=== PATIENT | female | born 1940 | race Caucasian/White ===

== ENCOUNTER 2019-09-11 12:22 | Emergency (ER) | payer MEDICARE, OTHER ==
--- NOTE | 2019-09-11 12:50 | EDM.PDOC ---
ED HPI GENERAL MEDICAL PROBLEM - General Stated Complaint: POSSIBLE UTI Time Seen by Provider: 09/11/19 12:35 Source of Information: Reports: Patient History Limitations: Reports: No Limitations - History of Present Illness INITIAL COMMENTS - FREE TEXT/NARRATIVE: c/o weakness, chills, urinary frequency, dysuria pt states she had nocturia x 5 two noghts ago, last night she voided 2-3x which is more normal has had dysuria has had chronic weakness, no falls, altho has had chills in past 24h, no temp now did not eat bfast or lunch today, unable to void, dec'd appetitie has taken her regular meds lives alone, retired nurse, has home health aide, has a dtr in [place] says she has a crooked back, no prior back surgery, has seen Dr Oneill from [facility] out of [place] and is supposed to have a myelogram done there, pt thinks she needs back surgery pt states it takes a very long time to get dressed, does not have her usual agility 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, states that the redness in her LLE is chronic altho it seems more red and warm than VSD alone pt awoke 7:30a, out of bed at 8:30a in good spirits and joking despite not eating in 4h since getting up RECENT MEDS [facility] CV: asa 81/d, losartan 25/d BEH: citalopram 20/d ENDOC: levothy 25/d LABS IN [facility]: none IMAGING IN [facility]: none PMH INCLUDES: CV: pacer ORTHO: DJD knees requiring injections, back pain PSH INCLUDES: gastric bypass, hernia repair, "tummy tuck", pacer PREVIOUS VISITS [facility]: none PCP Tamiko Grayson from [facility] Back Pain Score (Numeric/FACES): 7 - Related Data Allergies Allergy/AdvReac Type Severity Reaction Status Date / Time atropine [From Lomotil] Allergy Itching Verified 09/11/19 12:33 diphenoxylate [From Lomotil] Allergy Itching Verified 09/11/19 12:33 glycerin [From Nasal-Ease] Allergy Rash Verified 09/11/19 12:33 meperidine [From Demerol] Allergy Itching Verified 09/11/19 12:33 methylcellulose Allergy Rash Verified 09/11/19 12:33 [From Nasal-Ease] Penicillins Allergy Other Verified 09/11/19 12:33 sodium chloride Allergy Rash Verified 09/11/19 12:33 [From Nasal-Ease] zinc [From Nasal-Ease] Allergy Rash Verified 09/11/19 12:33 Home Meds: Home Meds Aspirin [Halfprin] 81 mg PO DAILY 09/11/19 [History] Citalopram [Citalopram HBr] 40 mg PO DAILY 09/11/19 [History] Levothyroxine 137 mcg PO DAILY 09/11/19 [History] Losartan [Cozaar] 50 mg PO DAILY 09/11/19 [History] buPROPion [Wellbutrin] 75 mg PO BEDTIME 09/11/19 [History] traMADol HCl [Tramadol HCl] 50 mg PO Q8HR PRN 09/11/19 [History] ED ROS GENERAL - Review of Systems Review Of Systems: See Below Constitutional: Reports: Malaise, Weakness, Decreased Appetite HEENT: Reports: No Symptoms Respiratory: Reports: No Symptoms. Denies: Shortness of Breath Cardiovascular: Reports: No Symptoms. Denies: Chest Pain Endocrine: Reports: No Symptoms GI/Abdominal: Reports: No Symptoms : Reports: Frequency, Urgency Musculoskeletal: Reports: Back Pain Skin: Reports: No Symptoms Neurological: Reports: Difficulty Walking Psychiatric: Reports: No Symptoms Hematologic/Lymphatic: Reports: No Symptoms Immunologic: Reports: No Symptoms ED EXAM, GENERAL - Physical Exam Exam: See Below Exam Limited By: No Limitations General Appearance: Alert, WD/WN, No Apparent Distress, Other (very pleasant, tends to minimize sxs) Ears: Hearing Grossly Normal Nose: Normal Inspection, Normal Mucosa, No Blood Throat/Mouth: Normal Inspection, Normal Lips, Normal Voice, No Airway Compromise Head: Atraumatic, Normocephalic Neck: Normal Inspection, Supple, Non-Tender, Full Range of Motion. No: Lymphadenopathy (R), Lymphadenopathy (L) Respiratory/Chest: No Respiratory Distress, Lungs Clear, Normal Breath Sounds, No Accessory Muscle Use, Chest Non-Tender Cardiovascular: Regular Rate, Rhythm, No Edema, Other (2/6 EZRA at LSB, precordium quiet) GI/Abdominal: Normal Bowel Sounds, Soft, Non-Tender, No Distention Extremities: Other (no edema, hyperpigmentation b/l c/w VSD, inc'd red and warm LLE from ankle to knee with small serous fluid oozing from a small break in skin anteriorly ) Neurological: Alert, Oriented, CN II-XII Intact, Normal Cognition, No Motor/Sensory Deficits Psychiatric: Normal Affect, Normal Mood Skin Exam: Warm, Other (see above, marked dec'd turgor UE with 1 sec tenting) Lymphatic: No Adenopathy Course - Vital Signs Last Recorded V/S: Last Vital Signs Temp 36.7 C 09/11/19 12:42 Pulse 70 09/11/19 12:42 Resp 16 09/11/19 12:42 BP 139/59 L 09/11/19 12:42 Pulse Ox 100 09/11/19 12:42 - Orders/Labs/Meds Orders: Active Orders 24 hr Category Date Time Status EKG Documentation Completion [RC] ASDIRECTED Care 09/11/19 14:09 Active Chest 2V [CR] Stat Exams 09/11/19 14:09 Taken CULTURE BLOOD [BC] Stat Lab 09/11/19 13:15 Received CULTURE BLOOD [BC] Stat Lab 09/11/19 14:55 Received CULTURE ROUTINE + SMEAR [RM] Stat Lab 09/11/19 14:25 Results CULTURE URINE [RM] Stat Lab 09/11/19 14:20 Received EKG 12 Lead [EK] Routine Ther 09/11/19 14:09 Ordered Labs: Laboratory Tests 09/11/19 09/11/19 09/11/19 Range/Units 13:15 13:15 13:15 WBC 11.7 (4.5-12.0) X10-3/uL RBC 4.02 (3.23-5.20) x10(6)uL Hgb 12.6 (11.5-15.5) g/dL Hct 39.1 (30.0-51.3) % MCV 97.3 H (80-96) fL MCH 31.3 (27.7-33.6) pg MCHC 32.1 L (32.2-35.4) g/dL RDW 12.5 (11.5-15.5) % Plt Count 187 (125-369) X10(3)uL MPV 7.5 (7.4-10.4) fL Add Manual Diff Yes Neutrophils % (Manual) 91 H (46-82) % Lymphocytes % (Manual) 5 L (13-37) % Monocytes % (Manual) 4 (4-12) % Sodium 131 L (135-145) mmol/L Potassium 4.2 (3.5-5.3) mmol/L Chloride 96 L (100-110) mmol/L Carbon Dioxide 31 (21-32) mmol/L BUN 15 (7-18) mg/dL Creatinine 0.8 (0.55-1.02) mg/dL Est Cr Clr Drug Dosing 41.13 mL/min Estimated GFR (MDRD) > 60 (>60) BUN/Creatinine Ratio 18.8 (9-20) Glucose 86 (80-116) mg/dL Lactic Acid 0.6 (0.4-2.0) mmol/L Calcium 9.8 (8.6-10.2) mg/dL Total Bilirubin 0.6 (0.1-1.3) mg/dL AST 30 H (5-25) IU/L ALT 20 (12-36) U/L Alkaline Phosphatase 75 (56-112) IU/L Troponin I (4.0-60.3) pg/mL C-Reactive Protein (0.5-0.9) mg/dL Total Protein 6.8 (6.0-8.0) g/dL Albumin 3.4 (3.2-4.6) g/dL Globulin 3.4 g/dL Albumin/Globulin Ratio 1.0 TSH, Ultra Sensitive (0.36-3.74) IU/mL Urine Color (YELLOW) Urine Appearance (CLEAR) Urine pH (5.0-6.5) Ur Specific [place] (1.010-1.025) Urine Protein (NEGATIVE) mg/dL Urine Glucose (UA) (NORMAL) mg/dL Urine Ketones (NEGATIVE) mg/dL Urine Occult Blood (NEGATIVE) Urine Nitrite (NEGATIVE) Urine Bilirubin (NEGATIVE) Urine Urobilinogen (NEGATIVE) mg/dL Ur Leukocyte Esterase (NEGATIVE) Urine RBC (0-5) Urine WBC (0-5) Ur Squamous Epith Cells (NS,R,O) Urine Bacteria (NS) 09/11/19 09/11/19 09/11/19 Range/Units 13:15 13:15 14:20 WBC (4.5-12.0) X10-3/uL RBC (3.23-5.20) x10(6)uL Hgb (11.5-15.5) g/dL Hct (30.0-51.3) % MCV (80-96) fL MCH (27.7-33.6) pg MCHC (32.2-35.4) g/dL RDW (11.5-15.5) % Plt Count (125-369) X10(3)uL MPV (7.4-10.4) fL Add Manual Diff Neutrophils % (Manual) (46-82) % Lymphocytes % (Manual) (13-37) % Monocytes % (Manual) (4-12) % Sodium (135-145) mmol/L Potassium (3.5-5.3) mmol/L Chloride (100-110) mmol/L Carbon Dioxide (21-32) mmol/L BUN (7-18) mg/dL Creatinine (0.55-1.02) mg/dL Est Cr Clr Drug Dosing mL/min Estimated GFR (MDRD) (>60) BUN/Creatinine Ratio (9-20) Glucose (80-116) mg/dL Lactic Acid (0.4-2.0) mmol/L Calcium (8.6-10.2) mg/dL Total Bilirubin (0.1-1.3) mg/dL AST (5-25) IU/L ALT (12-36) U/L Alkaline Phosphatase (56-112) IU/L Troponin I 12.9 (4.0-60.3) pg/mL C-Reactive Protein 17.9 H* (0.5-0.9) mg/dL Total Protein (6.0-8.0) g/dL Albumin (3.2-4.6) g/dL Globulin g/dL Albumin/Globulin Ratio TSH, Ultra Sensitive 1.99 (0.36-3.74) IU/mL Urine Color Yellow (YELLOW) Urine Appearance Clear (CLEAR) Urine pH 6.0 (5.0-6.5) Ur Specific [place] 1.015 (1.010-1.025) Urine Protein Negative (NEGATIVE) mg/dL Urine Glucose (UA) Normal (NORMAL) mg/dL Urine Ketones 15 H (NEGATIVE) mg/dL Urine Occult Blood Negative (NEGATIVE) Urine Nitrite Negative (NEGATIVE) Urine Bilirubin Negative (NEGATIVE) Urine Urobilinogen Normal (NEGATIVE) mg/dL Ur Leukocyte Esterase Small H (NEGATIVE) Urine RBC 0-5 (0-5) Urine WBC 0-5 (0-5) Ur Squamous Epith Cells Few H (NS,R,O) Urine Bacteria Moderate H (NS) Meds: Medications Discontinued Medications Generic Name Dose Route Start Last Admin Trade Name Trang PRN Reason Stop Dose Admin Ceftriaxone Sodium 1 gm 09/11/19 14:15 09/11/19 14:47 Rocephin IVPUSH 09/11/19 14:16 1 gm ONETIME ONE Administration Sodium Chloride 1,000 mls @ 999 mls/hr 09/11/19 12:59 09/11/19 13:13 Normal Saline IV 09/11/19 13:59 999 mls/hr .BOLUS ONE Administration Vancomycin HCl 850 mg/ Sodium 250 mls @ 166.667 mls/hr 09/11/19 14:16 09/11/19 15:23 Chloride IV 09/11/19 14:17 166.667 mls/hr ONETIME ONE Administration - Re-Assessments/Exams Free Text/Narrative Re-Assessment/Exam: 09/11/19 15:03 pt with redness up her LLE to near the groin, marked with pen has 4-5 left inguinal LNs medially that are 0.5 cm and soft and tender culture swab obtained of the left pretib area altho moisture was minimal, does have woody edema on compression 3 mm without leaving an imprint no h/o MRSA 09/11/19 15:42 the hosp here is at capacity and on diversion pt is from [place], d/w Dr Gregor tobias who accepted pt in transfer pt requests to go by private vehicle, ceftriaxone 1 gm given, will see if vanco can be interrupted Departure - Departure Time of Disposition: 15:57 Disposition: DC/Tfer to Acute Hospital 02 Condition: Good Clinical Impression: Cellulitis of left lower extremity, Inguinal adenopathy, Moderate dehydration, Leukocytosis, Left shift, Elevated C-reactive protein (CRP), Weakness, Chills (without fever) - Discharge Information *PRESCRIPTION DRUG MONITORING PROGRAM REVIEWED*: Not Applicable *COPY OF PRESCRIPTION DRUG MONITORING REPORT IN PATIENT ANGIE: Not Applicable Referrals: Tamiko Grayson PA [Primary Care Provider] - Sepsis Event Note (ED) - Evaluation Sepsis Screening Result: No Definite Risk - Focused Exam Vital Signs: Vital Signs Temp Pulse Resp BP Pulse Ox 09/11/19 12:42 36.7 C 70 16 139/59 L 100 - My Orders Last 24 Hours: My Active Orders 09/11/19 13:15 CULTURE BLOOD [BC] Stat 09/11/19 14:09 EKG Documentation Completion [RC] ASDIRECTED Chest 2V [CR] Stat EKG 12 Lead [EK] Routine 09/11/19 14:20 CULTURE URINE [RM] Stat 09/11/19 14:25 CULTURE ROUTINE + SMEAR [RM] Stat 09/11/19 14:55 CULTURE BLOOD [BC] Stat - Assessment/Plan Last 24 Hours: My Active Orders 09/11/19 13:15 CULTURE BLOOD [BC] Stat 09/11/19 14:09 EKG Documentation Completion [RC] ASDIRECTED Chest 2V [CR] Stat EKG 12 Lead [EK] Routine 09/11/19 14:20 CULTURE URINE [RM] Stat 09/11/19 14:25 CULTURE ROUTINE + SMEAR [RM] Stat 09/11/19 14:55 CULTURE BLOOD [BC] Stat
[2019-09-11] MEDS ORDERED: Sodium Chloride 0.9% 1,000 ML IV ONE (12:59)
[2019-09-11] MEDS ORDERED: cefTRIAXone 1 GM Vial IVPUSH ONE (14:15)
== END 2019-09-11 17:30 ==
LOC: FB.ED 12:22
DX: E86.0 Dehydration (principal); D72.829 Elevated white blood cell count, unspecified; L03.116 Cellulitis of left lower limb; R59.0 Localized enlarged lymph nodes; R79.82 Elevated C-reactive protein (CRP); Z88.0 Allergy status to penicillin; Z88.8 Allergy status to other drugs, medicaments and biological substances; Z91.048 Other nonmedicinal substance allergy status; Z79.82 Long term (current) use of aspirin; Z79.899 Other long term (current) drug therapy
CPT/HCPCS: 36415; 71046; 80053; 81001; 83605; 84443; 84484; 85025; 86140; 87040; 87070; 87077; 87086; 87088; 87186; 87205; 93005; 96361; 96365; 96366; 96375; 99285; J0696; J3370; J7030; J7050